=== PATIENT | female | born 1950 | race Caucasian/White ===

== ENCOUNTER 2016-07-27 08:25 | Day surgery (SDC) | payer OTHER ==
[~2016-07-27] VITALS: Ht 157.5 cm; Wt 68.0 kg
[~2016-07-27 08:25] MED LIST: FISH OIL 1,0001 EAC7 PO; LEVOTHYROXINE88 MCG PO; MULTIVITAMIN1 EAC2 PO
[2016-07-27 08:43] VITALS: BP 169/88
[2016-07-27 09:00] LABS: HEMATOCRIT 45.5 % (36.0-46.0); MCHC 32.1 G/DL (30.0-36.0); MCV 87.2 FL (83-99); MEAN PLAT.VOLUME 10.3 uM^3 (9.5-12.4); PLATELET COUNT 238 K/uL (156-360); RBC DIS.WIDTH-SD 41.7 % (39-53); RED BLOOD COUNT 5.22 M/uL (3.80-5.20); WHITE BLOOD COUNT 6.6 K/uL (4.1-10.2)
[2016-07-27 09:10] LABS: CHLORIDE 106 mEq/L (99-109); POTASSIUM 3.8 mEq/L (3.7-5.4); SODIUM 141 mEq/L (136-147)
[2016-07-27 09:13] LABS: GLUCOSE 103 mg/dL (70-99)
[2016-07-27 09:14] LABS: ANION GAP 11 MEQ/L (2-14)
[2016-07-27 09:15] LABS: TOTAL BILIRUBIN 0.6 mg/dL (0.0-1.0)
[2016-07-27 09:16] LABS: ALKALINE PHOSPHATASE 97 IU/L (3-129); GFR ESTIMATE (CALCULATED) > 59 mL/min/
[2016-07-27 09:17] LABS: UREA NITROGEN (BUN) 13 mg/dL (9-23)
[2016-07-27 13:05] VITALS: BP 189/84
[2016-07-27 14:04] VITALS: BP 156/88
== END 2016-07-27 13:59 | disposition home or self-care (01) ==
LOC: SDC 08:25
PROVIDERS: Ophthalmology
PROC: 08B53ZZ Excision of Left Vitreous, Percutaneous Approach (ICD-10-PCS; principal; 2016-07-27)
DX: H33.42 Traction detachment of retina, left eye (principal); I10 Essential (primary) hypertension; E78.5 Hyperlipidemia, unspecified; E03.9 Hypothyroidism, unspecified
CPT/HCPCS: 80053; 85027; J0690; J1100; J2250; J2405; J2795; J3010; J3300